=== PATIENT | female | born 1985 | race Caucasian/White ===

== ENCOUNTER 2017-09-06 22:23 | Emergency (ER) | payer SELFPAY ==
[~2017-09-06] VITALS: Ht 170.2 cm; Wt 75.0 kg
[~2017-09-06 22:23] MED LIST: ALEVE220 M2 PO; BACTRIM DS1 TAB PO; DENIES CURRENT MEDS; LORTAB 5/3255 MG PO; LORTAB 7.57.5 MG PO; NO; ONDANSETRON4 MG PO; TRAMADOL HCL50 MG PO; ULTRAM50 M1 OR; ULTRAM50 MG OR; VICODIN1 TAB PO
[2017-09-06] MEDS ORDERED: ULTRAM50 M1 PO (22:47)
[2017-09-06] MEDS ORDERED: KEFLEX500 MG PO (22:47)
[2017-09-06 22:58] VITALS: BP 124/73
== END 2017-09-06 23:04 | disposition home or self-care (01) | DRG 607 ==
LOC: ED 22:23
DX: L72.3 Sebaceous cyst (principal); L08.9 Local infection of the skin and subcutaneous tissue, unspecified; D22.39 Melanocytic nevi of other parts of face; F17.210 Nicotine dependence, cigarettes, uncomplicated

== ENCOUNTER 2018-02-15 21:37 | Emergency (ER) | payer SELFPAY ==
[~2018-02-15] VITALS: Ht 170.2 cm; Wt 75.0 kg
[~2018-02-15 21:37] MED LIST changes: +KEFLEX500 MG PO; +ULTRAM50 M1 PO
[2018-02-15 22:00] LABS: HEMATOCRIT 43.6 % (37.0-47.0); HEMOGLOBIN 14.7 g/dl (12.0-16.0); IMMATURE GRANULOCYTES 0.3 % (0.0-5.0); MEAN CELL VOLUME 90.5 fL CALC (80.0-100.0); MEAN CORPUSCULAR HGB 30.5 pG CALC (26.0-32.0); MEAN CORPUSCULAR HGB CONC 33.7 g/L CALC (32.0-36.0); NEUT# 8.58 thou/uL (2.00-7.15); RED BLOOD COUNT 4.82 mill/uL (4.20-5.60); RED CELL DISTRI WIDTH 12.5 % (11.5-15.5)
[2018-02-15 22:02] LABS: URINE BILIRUBIN - DIPSTICK NEGATIVE (NEGATIVE); URINE BLOOD DIPSTICK NEGATIVE (NEGATIVE); URINE COLOR YELLOW; URINE GLUCOSE - DIPSTICK NEGATIVE (NEGATIVE); URINE KETONE NEGATIVE (NEGATIVE); URINE LEUK ESTERASE TRACE (NEGATIVE); URINE PROTEIN - DIPSTICK NEGATIVE (NEG-TRACE); URINE UROBILINOGEN - DIPSTICK 0.2 E.U./dL (0.2)
[2018-02-15 22:03] LABS: URINE CLARITY SL CLOUDY; URINE NITRITE - DIPSTICK POSITIVE (Negative)
[2018-02-15 22:10] LABS: URINE AMORPH SEDIMENT MODERATE hpf (NONE-FEW); URINE BACTERIA FEW hpf; URINE RBC 0-2 RBC/hpf (0-5); URINE SQUAMOUS EPITHELIAL CELL FEW EPI/hpf (0-FEW)
[2018-02-15 22:14] LABS: ALBUMIN 4.6 g/dL (3.2-5.0); ALKALINE PHOSPHATASE 82 u/l (38-126); AMYLASE 77 u/l (30-110); ANION GAP 13 (6-22 (CALC)); BILIRUBIN, TOTAL 0.3 mg/dL (0.0-1.4); BUN 12 mg/dL (7-17); BUN/CREATININE RATIO 17 (12-20 (CALC)); CARBON DIOXIDE 31 mmol/l (22-30); CHLORIDE 104 mmol/l (95-108); CREATININE 0.7 mg/dL (0.5-1.0); GFR > 60 ML/MIN (>=60 (CALC)); GFR FOR AFR.AMER. > 60 ML/MIN (>=60 (CALC)); LIPASE 121 u/l (23-300); POTASSIUM 3.6 mmol/l (3.5-5.1); SGOT/AST 21 u/l (14-36); SODIUM 144 mmol/l (137-146); TOTAL PROTEIN 7.8 g/dL (6.3-8.2)
[2018-02-15 22:26] LABS: MYOGLOBIN 22 ng/mL (0 - 62)
[2018-02-15] MEDS ORDERED: OMEPRAZOLE20 M2 PO (23:10)
[2018-02-15] MEDS ORDERED: AMPICILLIN500 MG PO (23:10)
[2018-02-15] MEDS ORDERED: CLARITHROMYC500 M1 PO (23:10)
[2018-02-16 00:09] VITALS: BP 101/71
== END 2018-02-16 00:17 | disposition home or self-care (01) | DRG 392 ==
LOC: ED 21:37
PROVIDERS: Emergency Medicine
DX: K29.70 Gastritis, unspecified, without bleeding (principal); B96.81 Helicobacter pylori [H. pylori] as the cause of diseases classified elsewhere; F17.200 Nicotine dependence, unspecified, uncomplicated; R82.71 Bacteriuria
CPT/HCPCS: S0164

== ENCOUNTER 2018-03-26 23:29 | Emergency (ER) | payer OTHER ==
[~2018-03-26] VITALS: Ht 170.2 cm; Wt 76.4 kg
[~2018-03-26 23:29] MED LIST changes: +AMPICILLIN500 MG PO; +CLARITHROMYC500 M1 PO; +OMEPRAZOLE20 M2 PO
[2018-03-27] MEDS ORDERED: COMBIVIR 1501 COMBO PO (00:11)
[2018-03-27] MEDS ORDERED: CRIXIVAN400 MG PO ×3 (00:11→11:18)
[2018-03-27 01:14] VITALS: BP 110/74
[2018-03-27 01:43] LABS: HEMOGLOBIN 14.1 g/dl (12.0-16.0); IMMATURE GRANULOCYTES 0.4 % (0.0-5.0); MEAN CELL VOLUME 89.7 fL CALC (80.0-100.0); MEAN CORPUSCULAR HGB 30.1 pG CALC (26.0-32.0); MEAN CORPUSCULAR HGB CONC 33.6 g/L CALC (32.0-36.0); NEUT# 8.65 thou/uL (2.00-7.15); RED BLOOD COUNT 4.68 mill/uL (4.20-5.60); RED CELL DISTRI WIDTH 12.4 % (11.5-15.5)
[2018-03-27 01:48] LABS: URINE BILIRUBIN - DIPSTICK NEGATIVE (NEGATIVE); URINE BLOOD DIPSTICK NEGATIVE (NEGATIVE); URINE COLOR YELLOW; URINE GLUCOSE - DIPSTICK NEGATIVE (NEGATIVE); URINE KETONE NEGATIVE (NEGATIVE); URINE LEUK ESTERASE NEGATIVE (NEGATIVE); URINE PROTEIN - DIPSTICK NEGATIVE (NEG-TRACE); URINE SPECIFIC GRAVITY 1.025; URINE UROBILINOGEN - DIPSTICK 0.2 E.U./dL (0.2)
[2018-03-27 01:51] LABS: URINE CLARITY TURBID; URINE NITRITE - DIPSTICK POSITIVE (Negative)
[2018-03-27 01:53] LABS: ALBUMIN 4.2 g/dL (3.2-5.0); ALKALINE PHOSPHATASE 89 u/l (38-126); ANION GAP 14 (6-22 (CALC)); BILIRUBIN, TOTAL 0.3 mg/dL (0.0-1.4); BUN 14 mg/dL (7-17); BUN/CREATININE RATIO 26 (12-20 (CALC)); CARBON DIOXIDE 23 mmol/l (22-30); CHLORIDE 108 mmol/l (95-108); CREATININE 0.6 mg/dL (0.5-1.0); GFR > 60 ML/MIN (>=60 (CALC)); GFR FOR AFR.AMER. > 60 ML/MIN (>=60 (CALC)); POTASSIUM 3.6 mmol/l (3.5-5.1); SGOT/AST 18 u/l (14-36); SODIUM 141 mmol/l (137-146); TOTAL PROTEIN 7.1 g/dL (6.3-8.2)
[2018-03-27 02:00] LABS: URINE BACTERIA MANY hpf; URINE MUCUS MODERATE hpf (NONE-FEW); URINE RBC 0-2 RBC/hpf (0-5); URINE SQUAMOUS EPITHELIAL CELL MANY EPI/hpf (0-FEW)
[2018-03-27] MEDS ORDERED: ZOFRAN ODT4 MG PO ×2 (11:12→11:18)
[2018-03-28] MEDS ORDERED: CARAFATE1 GM PO (13:18)
== END 2018-03-27 01:14 | disposition home or self-care (01) | DRG 605 ==
LOC: ED 23:29
PROVIDERS: Family Medicine
DX: S61.215A Laceration without foreign body of left ring finger without damage to nail, initial encounter (principal); X58.XXXA Exposure to other specified factors, initial encounter; Y93.89 Activity, other specified; Y92.009 Unspecified place in unspecified non-institutional (private) residence as the place of occurrence of the external cause; Y99.0 Civilian activity done for income or pay; Z77.21 Contact with and (suspected) exposure to potentially hazardous body fluids; R82.71 Bacteriuria

== ENCOUNTER 2018-03-27 10:53 | Emergency (ER) | payer OTHER ==
[~2018-03-27] VITALS: Ht 170.2 cm; Wt 77.0 kg
[~2018-03-27 10:53] MED LIST changes: +COMBIVIR 1501 COMBO PO; +CRIXIVAN400 MG PO
[2018-03-27] MEDS ORDERED: CRIXIVAN400 MG PO ×2 (11:10→11:18)
[2018-03-27] MEDS ORDERED: ZOFRAN ODT4 MG PO ×2 (11:12→11:18)
[2018-03-27 11:15] VITALS: BP 106/71
[2018-03-28] MEDS ORDERED: CARAFATE1 GM PO (13:18)
== END 2018-03-27 11:15 | disposition home or self-care (01) | DRG 951 ==
LOC: ED 10:53
DX: Z29.8 Encounter for other specified prophylactic measures (principal)

== ENCOUNTER 2018-03-27 21:30 | Emergency (ER) | payer SELFPAY ==
[~2018-03-27] VITALS: Ht 170.2 cm; Wt 77.0 kg
[~2018-03-27 21:30] MED LIST changes: +ZOFRAN ODT4 MG PO
[2018-03-27 21:49] VITALS: BP 115/67
[2018-03-28] MEDS ORDERED: CARAFATE1 GM PO (13:18)
== END 2018-03-27 21:49 | disposition home or self-care (01) | DRG 951 ==
LOC: ED 21:30
DX: Z29.8 Encounter for other specified prophylactic measures (principal); Z77.21 Contact with and (suspected) exposure to potentially hazardous body fluids

== ENCOUNTER 2018-03-28 08:47 | Emergency (ER) | payer OTHER ==
[~2018-03-28] VITALS: Ht 170.2 cm; Wt 74.0 kg
[2018-03-28 09:02] VITALS: BP 112/68
[2018-03-28] MEDS ORDERED: CARAFATE1 GM PO (13:18)
== END 2018-03-28 09:02 | disposition home or self-care (01) | DRG 951 ==
LOC: ED 08:47
DX: Z77.21 Contact with and (suspected) exposure to potentially hazardous body fluids (principal); Z29.8 Encounter for other specified prophylactic measures; K29.70 Gastritis, unspecified, without bleeding; R11.0 Nausea; Z76.0 Encounter for issue of repeat prescription

== ENCOUNTER 2018-03-28 12:58 | Emergency (ER) | payer OTHER ==
[~2018-03-28] VITALS: Ht 170.2 cm; Wt 70.0 kg
[2018-03-28] MEDS ORDERED: CARAFATE1 GM PO (13:18)
[2018-03-28 13:35] VITALS: BP 101/60
== END 2018-03-28 13:35 | disposition home or self-care (01) | DRG 951 ==
LOC: ED 12:58
DX: Z76.0 Encounter for issue of repeat prescription (principal); K29.70 Gastritis, unspecified, without bleeding; R11.0 Nausea

== ENCOUNTER 2018-03-29 08:58 | Emergency (ER) | payer OTHER ==
[~2018-03-29] VITALS: Ht 170.2 cm; Wt 76.3 kg
[~2018-03-29 08:58] MED LIST changes: +CARAFATE1 GM PO
[2018-03-29 09:48] VITALS: BP 114/68
== END 2018-03-29 09:48 | disposition home or self-care (01) | DRG 951 ==
LOC: ED 08:58
DX: Z29.8 Encounter for other specified prophylactic measures (principal); Z77.21 Contact with and (suspected) exposure to potentially hazardous body fluids; R11.2 Nausea with vomiting, unspecified

== ENCOUNTER 2018-03-29 14:14 | Emergency (ER) | payer OTHER ==
[~2018-03-29] VITALS: Ht 170.2 cm; Wt 76.4 kg
[2018-03-29 14:58] VITALS: BP 94/57
== END 2018-03-29 14:58 | disposition home or self-care (01) | DRG 951 ==
LOC: ED 14:14
DX: Z29.8 Encounter for other specified prophylactic measures (principal)

== ENCOUNTER 2018-03-30 10:04 | Emergency (ER) | payer OTHER ==
[~2018-03-30] VITALS: Ht 170.2 cm; Wt 68.2 kg
[2018-03-30 10:33] VITALS: BP 107/63
== END 2018-03-30 10:33 | disposition home or self-care (01) | DRG 951 ==
LOC: ED 10:04
DX: Z29.8 Encounter for other specified prophylactic measures (principal); Z76.0 Encounter for issue of repeat prescription

== ENCOUNTER 2018-03-30 15:03 | Emergency (ER) | payer OTHER ==
[~2018-03-30] VITALS: Ht 170.2 cm; Wt 75.0 kg
[2018-03-30 15:30] VITALS: BP 134/64
== END 2018-03-30 15:30 | disposition home or self-care (01) | DRG 951 ==
LOC: ED 15:03
DX: Z76.0 Encounter for issue of repeat prescription (principal); Z29.8 Encounter for other specified prophylactic measures

== ENCOUNTER 2019-01-25 20:37 | Emergency (ER) | payer SELFPAY ==
[~2019-01-25] VITALS: Ht 167.6 cm; Wt 72.7 kg
[2019-01-25] MEDS ORDERED: ULTRAM50 M1 PO (21:57)
[2019-01-25 22:10] VITALS: BP 118/64
== END 2019-01-25 22:12 | disposition home or self-care (01) | DRG 538 ==
LOC: ED 20:37
DX: S73.102A Unspecified sprain of left hip, initial encounter (principal); S20.212A Contusion of left front wall of thorax, initial encounter; M25.531 Pain in right wrist; F17.210 Nicotine dependence, cigarettes, uncomplicated; V28.4XXA Motorcycle driver injured in noncollision transport accident in traffic accident, initial encounter

== ENCOUNTER 2019-04-26 18:52 | Emergency (ER) | payer MEDICAID ==
[~2019-04-26] VITALS: Ht 167.6 cm; Wt 72.7 kg
[2019-04-26] MEDS ORDERED: FLEXERIL PO (21:01)
[2019-04-26] MEDS ORDERED: LORTAB 1010 MG PO (21:01)
[2019-04-26 21:50] VITALS: BP 97/50
== END 2019-04-26 21:50 | disposition home or self-care (01) ==
LOC: ED 18:52
DX: S73.102A Unspecified sprain of left hip, initial encounter (principal); F17.200 Nicotine dependence, unspecified, uncomplicated; V28.5XXA Motorcycle passenger injured in noncollision transport accident in traffic accident, initial encounter

== ENCOUNTER 2019-08-21 | Emergency (ER) | payer SELFPAY ==
[~2019-08-21] MED LIST changes: +FLEXERIL PO; +LORTAB 1010 MG PO
[2019-08-21] MEDS ORDERED: TRAMADOL HYDROC50 M1 PO (15:49)
== END 2019-08-21 16:00 | disposition home or self-care (01) | DRG 914 ==
DX: S89.92XA Unspecified injury of left lower leg, initial encounter (principal); F17.210 Nicotine dependence, cigarettes, uncomplicated; W01.0XXA Fall on same level from slipping, tripping and stumbling without subsequent striking against object, initial encounter; Y93.A5 Activity, obstacle course; Y92.009 Unspecified place in unspecified non-institutional (private) residence as the place of occurrence of the external cause
CPT/HCPCS: L1830

== ENCOUNTER 2020-07-23 16:18 | Emergency (ER) | payer SELFPAY ==
[~2020-07-23 16:18] MED LIST changes: +TRAMADOL HYDROC50 M1 PO
== END 2020-07-23 17:11 | disposition left against medical advice (07) | DRG 951 ==
LOC: ED 16:18 → LWOBS 17:10 → ED 17:10 → LWOBS 17:11
DX: Z91.19 Patient's noncompliance with other medical treatment and regimen (principal)

== ENCOUNTER 2020-10-17 09:53 | Emergency (ER) | payer MEDICAID ==
[~2020-10-17] VITALS: Ht 167.6 cm; Wt 64.0 kg
[2020-10-17] MEDS ORDERED: TORADOL PO (14:34)
[2020-10-17] MEDS ORDERED: AMOX/K CLAV875 M1 PO (14:34)
[2020-10-17] MEDS ORDERED: ZOFRAN4 MG/TAB PO (14:34)
[2020-10-17 14:41] VITALS: BP 128/72
== END 2020-10-17 14:49 | disposition home or self-care (01) | DRG 153 ==
LOC: ED 09:53
DX: J32.4 Chronic pansinusitis (principal); F17.210 Nicotine dependence, cigarettes, uncomplicated
CPT/HCPCS: A9579

== ENCOUNTER 2020-12-20 20:31 | Emergency (ER) | payer MEDICAID ==
[~2020-12-20 20:31] MED LIST changes: +AMOX/K CLAV875 M1 PO; +TORADOL PO; +ZOFRAN4 MG/TAB PO
[2020-12-20 21:29] LABS: HEMATOCRIT 41.2 % (37.0-47.0); HEMOGLOBIN 13.6 g/dl (12.0-16.0); IMMATURE GRANULOCYTES 0.1 % (0.0-5.0); MEAN CELL VOLUME 93.4 fL CALC (80.0-100.0); MEAN CORPUSCULAR HGB 30.8 pG CALC (26.0-32.0); NEUT# 5.38 thou/uL (2.00-7.15); RED BLOOD COUNT 4.41 mill/uL (4.20-5.60); RED CELL DISTRI WIDTH 12.4 % (11.5-15.5)
[2020-12-20 21:29] LABS: URINE BILIRUBIN - DIPSTICK NEGATIVE (NEGATIVE); URINE BLOOD DIPSTICK NEGATIVE (NEGATIVE); URINE COLOR YELLOW; URINE GLUCOSE - DIPSTICK NEGATIVE (NEGATIVE); URINE KETONE NEGATIVE (NEGATIVE); URINE LEUK ESTERASE TRACE (NEGATIVE); URINE PH 6.5 (4.5-8.0); URINE PROTEIN - DIPSTICK NEGATIVE (NEG-TRACE); URINE UROBILINOGEN - DIPSTICK 0.2 E.U./dL (0.2)
[2020-12-20 21:33] LABS: URINE NITRITE - DIPSTICK POSITIVE (Negative)
[2020-12-20 21:42] LABS: URINE WBC 20-50 WBC/hpf (0-5)
[2020-12-20 21:43] LABS: URINE BACTERIA MANY hpf; URINE MUCUS FEW hpf (NONE-FEW); URINE SQUAMOUS EPITHELIAL CELL FEW EPI/hpf (0-FEW)
[2020-12-20 21:43] LABS: PROTHROMBIN TIME 10.5 SECONDS (9.0-12.5)
[2020-12-20 21:45] LABS: ALBUMIN 4.1 g/dL (3.2-5.0); ALKALINE PHOSPHATASE 70 u/l (38-126); ANION GAP 13 (6-22 (CALC)); BILIRUBIN, TOTAL 0.2 mg/dL (0.0-1.4); BUN 10 mg/dL (7-17); BUN/CREATININE RATIO 14 (12-20 (CALC)); CARBON DIOXIDE 27 mmol/l (22-30); CHLORIDE 103 mmol/l (95-108); CREATININE 0.7 mg/dL (0.5-1.0); GFR > 60 ML/MIN (>=60 (CALC)); GFR FOR AFR.AMER. > 60 ML/MIN (>=60 (CALC)); LIPASE 129 u/l (23-300); POTASSIUM 3.7 mmol/l (3.5-5.1); SGOT/AST 24 u/l (14-36); SODIUM 139 mmol/l (137-146)
[2020-12-21 01:11] VITALS: BP 98/54
[2020-12-21] MEDS ORDERED: CIPROFLOXACN500 MG PO (01:13)
== END 2020-12-21 01:30 | disposition home or self-care (01) ==
LOC: ED 20:31
PROVIDERS: Emergency Medicine
DX: R07.89 Other chest pain (principal); N39.0 Urinary tract infection, site not specified; B96.20 Unspecified Escherichia coli [E. coli] as the cause of diseases classified elsewhere; F17.200 Nicotine dependence, unspecified, uncomplicated

== ENCOUNTER 2022-11-25 18:41 | Emergency (ER) | payer MEDICAID ==
[~2022-11-25] VITALS: Ht 167.6 cm; Wt 69.5 kg
[~2022-11-25 18:41] MED LIST changes: +CIPROFLOXACN500 MG PO
[2022-11-25 18:46] VITALS: BP 127/73
[2022-11-25] MEDS ORDERED: NORTRIPTYLIN PO (18:49)
[2022-11-25] MEDS ORDERED: BACLOFEN20 MG PO (18:50)
[2022-11-25] MEDS ORDERED: CELEBREX100 M1 PO (18:50)
[2022-11-25 19:00] VITALS: BP 100/59
[2022-11-25 19:10] LABS: BASO% 0.5 % (0-3); EOS% 0.7 % (0-8); HEMATOCRIT 39.4 % (37.0-47.0); HEMOGLOBIN 12.9 g/dl (12.0-16.0); IMMATURE GRANULOCYTES 0.5 % (0.0-5.0); MEAN CELL VOLUME 91.8 fL CALC (80.0-100.0); MEAN CORPUSCULAR HGB 30.1 pG CALC (26.0-32.0); MEAN CORPUSCULAR HGB CONC 32.7 g/dL CAL (32.0-36.0); MONO% 5.4 % (2-13); NEUT# 8.52 thou/uL (2.00-7.15); NEUT% 64.9 % (42-76); RED BLOOD COUNT 4.29 mill/uL (4.20-5.60); RED CELL DISTRI WIDTH 12.3 % (11.5-15.5)
[2022-11-25 19:15] LABS: ALBUMIN 4.2 g/dL (3.2-5.0); ALKALINE PHOSPHATASE 69 u/l (38-126); ANION GAP 14 (6-22 (CALC)); BILIRUBIN, TOTAL 0.6 mg/dL (0.02-1.3); BUN 11 mg/dL (7-17); BUN/CREATININE RATIO 16 (12-20 (CALC)); CARBON DIOXIDE 21 mmol/l (22-30); CHLORIDE 107 mmol/l (95-108); CREATININE 0.7 mg/dL (0.5-1.0); GFR FOR AFR.AMER. > 60 ML/MIN (>=60 (CALC)); GFR OTHER RACES > 60 ML/MIN (>=60 (CALC)); LIPASE 47 u/l (23-300); POTASSIUM 3.2 mmol/l (3.5-5.1); SGOT/AST 42 u/l (14-36); SODIUM 139 mmol/l (137-146); TOTAL PROTEIN 7.3 g/dL (6.3-8.2)
[2022-11-25 20:25] LABS: URINE BILIRUBIN - DIPSTICK NEGATIVE (NEGATIVE); URINE BLOOD DIPSTICK NEGATIVE (NEGATIVE); URINE COLOR YELLOW; URINE GLUCOSE - DIPSTICK NEGATIVE (NEGATIVE); URINE KETONE TRACE mg/dL (NEGATIVE); URINE LEUK ESTERASE NEGATIVE (NEGATIVE); URINE PH 5.5 (4.5-8.0); URINE PROTEIN - DIPSTICK TRACE mg/dL (NEG-TRACE); URINE SPECIFIC GRAVITY >=1.030; URINE UROBILINOGEN - DIPSTICK 0.2 E.U./dL (0.2)
[2022-11-25 20:30] LABS: URINE NITRITE - DIPSTICK POSITIVE (Negative)
[2022-11-25 20:45] LABS: URINE BACTERIA MANY hpf; URINE SQUAMOUS EPITHELIAL CELL MANY EPI/hpf (0-FEW)
[2022-11-25] MEDS ORDERED: BACTRIM DS1 TAB PO (21:46)
[2022-11-25 22:04] VITALS: BP 100/59
== END 2022-11-25 22:17 | disposition home or self-care (01) ==
LOC: ED 18:41
PROVIDERS: Family Medicine
DX: K91.5 Postcholecystectomy syndrome (principal); R82.71 Bacteriuria; F17.200 Nicotine dependence, unspecified, uncomplicated
CPT/HCPCS: Q9967

== ENCOUNTER 2024-02-25 14:29 | Emergency (ER) | payer SELFPAY ==
[~2024-02-25] VITALS: Ht 167.6 cm; Wt 63.5 kg
[2024-02-25] VITALS (8 sets, daily range): BP systolic 90–116; BP diastolic 50–69
[~2024-02-25 14:29] MED LIST changes: +BACLOFEN20 MG PO; +CELEBREX100 M1 PO; +NORTRIPTYLIN PO
[2024-02-25] MEDS ORDERED: IPRATROPIUM-Albuterol 0.5MG-2.5MG/3 ML NEB ONE (15:05)
[2024-02-25] MEDS ORDERED: methylPREDNISolone SODIUM SUCC 125 MG/2 ML SDV IV ONE (15:05)
[2024-02-25] MEDS ORDERED: KETOROLAC TROMETHAMINE 30 MG/ML SDV IV ONE (15:10)
[2024-02-25] MEDS ORDERED: ACETAMINOPHEN 500 MG TAB PO ONE (15:10)
[2024-02-25 15:21] LABS: BASO% 0.7 % (0-3); EOS% 1.8 % (0-8); HEMATOCRIT 43.3 % (37.0-47.0); HEMOGLOBIN 14.3 g/dl (12.0-16.0); IMMATURE GRANULOCYTES 0.1 % (0.0-5.0); LYMPH% 27.5 % (15-41); MEAN CELL VOLUME 93.1 fL CALC (80.0-100.0); MEAN CORPUSCULAR HGB 30.8 pG CALC (26.0-32.0); MONO% 6.9 % (2-13); NEUT# 7.44 thou/uL (2.00-7.15); RED BLOOD COUNT 4.65 mill/uL (4.20-5.60); RED CELL DISTRI WIDTH 12.5 % (11.5-15.5)
[2024-02-25 15:36] LABS: ALBUMIN 4.4 g/dL (3.2-5.0); ALKALINE PHOSPHATASE 66 u/l (38-126); ANION GAP 9 (6-22 (CALC)); BILIRUBIN, TOTAL 0.4 mg/dL (0.02-1.3); BUN 9 mg/dL (7-17); BUN/CREATININE RATIO 13 (12-20 (CALC)); CARBON DIOXIDE 25 mmol/l (22-30); CHLORIDE 111 mmol/l (95-108); CREATININE 0.6 mg/dL (0.5-1.0); D-DIMER 0.31 mg/L (0.19-0.60); ESTIMATED GFR 118 ML/MIN (>=90 (CALC)); SGOT/AST 22 u/l (14-36); SODIUM 141 mmol/l (137-146); TOTAL PROTEIN 7.4 g/dL (6.3-8.2)
[2024-02-25 15:38] LABS: INTERNATIONAL NORMALIZED RATIO 1.1 RATIO (0.7-1.3)
[2024-02-25 15:39] LABS: PROTHROMBIN TIME 10.3 SECONDS (9.0-12.5)
[2024-02-25] MEDS ORDERED: VIBRAMYCIN100 M2 PO (16:23)
[2024-02-25] MEDS ORDERED: VENTOLIN HFA IN (16:23)
== END 2024-02-25 16:42 | disposition home or self-care (01) | DRG 313 ==
LOC: ED 14:29
PROVIDERS: Family Medicine
DX: R07.89 Other chest pain (principal); J20.9 Acute bronchitis, unspecified; F17.200 Nicotine dependence, unspecified, uncomplicated

== ENCOUNTER 2024-08-02 09:10 | Emergency (ER) | payer SELFPAY ==
[~2024-08-02] VITALS: Ht 167.6 cm; Wt 73.0 kg
[~2024-08-02 09:10] MED LIST changes: +VENTOLIN HFA IN; +VIBRAMYCIN100 M2 PO
[2024-08-02 09:35] VITALS: BP 112/63
[2024-08-02 09:47] VITALS: BP 97/54
[2024-08-02 10:01] VITALS: BP 105/60
[2024-08-02] MEDS ORDERED: SODIUM CHLORIDE 0.9% 1,000 ML IV ONE (10:05)
[2024-08-02] MEDS ORDERED: KETOROLAC TROMETHAMINE 30 MG/ML SDV IV ONE (10:10)
[2024-08-02] MEDS ORDERED: PROMETHAZINE HCL 25 MG/ML AMP IV ONE (10:10)
[2024-08-02 10:15] VITALS: BP 96/73
[2024-08-02 10:26] VITALS: BP 96/73
== END 2024-08-02 18:16 | disposition left against medical advice (07) | DRG 103 ==
LOC: ED 09:10
DX: R51.9 Headache, unspecified (principal); Z53.29 Procedure and treatment not carried out because of patient's decision for other reasons; F17.210 Nicotine dependence, cigarettes, uncomplicated
CPT/HCPCS: J1100; J2550